=== PATIENT | female | born 1975 | race Caucasian/White ===

== ENCOUNTER → 2020-05-27 19:32 | Outpatient (CLI) | payer BC, SELFPAY | PROVIDERS: PCP Family Medicine; Visit Provider Family Medicine | DX: Z03.818 Encounter for observation for suspected exposure to other biological agents ruled out (principal) | CPT/HCPCS: U0003 ==

== ENCOUNTER → 2020-12-12 15:08 | Outpatient (CLI) | payer BC, SELFPAY ==
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
== END ==
PROVIDERS: PCP Family Medicine; Visit Provider Family Medicine
DX: M54.16 Radiculopathy, lumbar region (principal); M54.9 Dorsalgia, unspecified; M54.5 Low back pain
CPT/HCPCS: 72148; 76376

== ENCOUNTER → 2021-03-24 19:21 | Outpatient (CLI) | payer BC, SELFPAY ==
[2021-03-24 21:44] LABS: Chloride 107 mmol/L (98-107); Potassium 4.6 mmoL/L (3.5-5.1); Sodium 141 mmol/L (136-145)
[2021-03-24 21:47] LABS: Alanine Aminotransferase 20 U/L (12-78); Albumin Level 4.3 g/dl (3.5-5.0); Albumin/Globulin Ratio 1.2 (1.1-1.8); Alkaline Phosphatase 141 U/L (38-126); Anion Gap 15.6 mEq/L (5-15); Aspartate Amino Transferase 32 U/L (14-36); Bilirubin,Total 0.5 mg/dl (0.2-1.3); Blood Urea Nitrogen 14 mg/dl (7-17); Carbon Dioxide 23 mmol/L (22.0-30.0); Estimated Glomerular Filt Rate 53 ml/min (>60); GFR (African American) 65 ML/MIN (>60); Globulin 3.5 g/dL (1.3-3.2); Total Protein,Serum 7.8 g/dl (6.3-8.2)
[2021-03-24 21:48] LABS: Calcium 10.1 mg/dl (8.4-10.2); Glucose 98 mg/dl (74-100)
== END ==
PROVIDERS: Visit Provider Family Medicine
DX: Z90.5 Acquired absence of kidney (principal)
CPT/HCPCS: 80053

== ENCOUNTER 2021-04-08 19:21 | Emergency (ER) | payer BC, SELFPAY ==
[2021-04-08 19:22] VITALS: BP 159/83; PULSE 91; RESP 16; TEMP 36.3; O2SAT 97; BMI 37.5
--- NOTE | 2021-04-08 19:47 | HMH.EDGENADL ---
ED Disposition Clinical Impression: Chronic back pain Qualifiers: Back pain location: low back pain Back pain laterality: right Sciatica presence: with sciatica Sciatica laterality: sciatica of right side Qualified Code(s): M54.41 - Lumbago with sciatica, right side; G89.29 - Other chronic pain Disposition: Home, Self-Care Condition on Discharge: Good Prescriptions: Oxycodone HCl/Acetaminophen [Percocet 5/325mg tablet] 1 tab PO TID PRN #5 tab PRN Reason: Moderate Pain Transmission Status: Received by [id number] Referrals: Fran Arnett MD [Primary Care Provider] - 04/09/21 (Call for appointment) Time of Disposition: 19:51 - Critical Care Critical Care Time: No Attestation: On 04/08/21, the high probability of a clinically significant, sudden or life threatening deterioration of the following system(s) required my full and direct attention, intervention and personal management. The time I documented below is in addition to time spent performing reported procedures but includes the following listed in this critical care notation. Medical Decision Making - Medical Records Medical records reviewed: Yes: I reviewed the patient's medical records. MR Comment: Reviewed the patient's MRI study. - Ned Inquiry Pt receiving controlled substance: No Vital Signs: 04/08/21 19:22 Temperature 97.3 F L Temperature Source Oral Pulse Rate [Left] 91 H Respiratory Rate 16 Blood Pressure [Right Arm] 159/83 H Blood Pressure Mean [Right Arm] 108 02 Sat by Pulse Oximetry 97 Oxygen Delivery Method Room Air Medical Decision Narrative: 45yo F evaluated for chronic back pain. Patient no acute distress on initial evaluation. Patient states she cannot tolerate gabapentin because it makes her so dizzy she cannot work. Offered to write the patient for gabapentin 100 mg tablets and let her slowly titrate herself up and see if she tolerates it better. She declines. She states she prefer to go back to Percocet 5 mg that was being prescribed by her PCP. Patient's back pain on palpation does not correlate to her MRI findings. I agreed to write a few tablets so she can follow-up with her PCP tomorrow. General Adult HPI - General Chief complaint: PAIN Stated complaint: back pain Time Seen by Provider: 04/08/21 19:35 Mode of Arrival: Ambulatory Limitations: No Limitations Description of Symptoms (Recalled from ER Triage Doc. by RN): pt complains of a cyst on her spine causing her pain 10\10 and numbness down her right leg - History of Present Illness HPI narrative: 45yo F with ongoing back pain. Patient is undergone MRI and currently has an appointment with a surgical technology instructor at [facility] in 19 days. She was on Percocet 5 mg from her PCP and then switched to gabapentin 300 mg every 8. She states the gabapentin make her so dizzy she is not able to function. She stopped taking them. She only took 10 of them for a trial. She denies any recent injury, fall, trauma. No new symptoms, numbness, loss of bladder or bowel control. - Related Data Home Medications Medication Instructions Recorded Confirmed amlodipine 10 mg tablet 10 mg PO DAILY tab 03/11/20 03/24/21 cholecalciferol (vitamin D3) 25 1,000 unit PO DAILY cap 03/11/20 03/24/21 mcg (1,000 unit) capsule venlafaxine 150 mg ea PO 03/11/20 03/24/21 capsule,extended release 24 hr Previous Rx's Medication Instructions Recorded propranolol 80 mg capsule,24 80 mg PO DAILY #30 cap 04/16/20 hr,extended release buspirone 10 mg tablet See Rx Instructions .ROUTE 02/11/21 .COMPLEX #90 tab cyclobenzaprine 10 mg tablet See Rx Instructions .ROUTE 02/11/21 .COMPLEX #90 tab clobetasol 0.05 % topical cream 1 applic TOPICAL BID 14 Days #60 g 03/24/21 gabapentin 300 mg capsule 300 mg PO Q8H PRN #90 cap 03/24/21 oxycodone-acetaminophen 5 mg-325 1 tab PO DAILY PRN #10 tab 03/24/21 mg tablet Oxycodone HCl/Acetaminophen 1 tab PO TID PRN #5 tab
[2021-04-08 20:00] VITALS: BP 163/109; PULSE 89; RESP 20; TEMP 37; O2SAT 94
== END 2021-04-08 20:00 | disposition home or self-care (01) ==
PROVIDERS: Emergency Provider Family Medicine; PCP Family Medicine
DX: M54.41 Lumbago with sciatica, right side (principal); G89.29 Other chronic pain; I10 Essential (primary) hypertension; K21.9 Gastro-esophageal reflux disease without esophagitis
CPT/HCPCS: 99281

== ENCOUNTER 2021-05-06 22:01 | Emergency (ER) | payer BC, SELFPAY ==
[2021-05-06 22:02] VITALS: BP 124/69; PULSE 77; RESP 17; TEMP 36.4; O2SAT 99; BMI 37.5
--- NOTE | 2021-05-06 22:21 | HMH.EDBACK ---
ED Disposition Clinical Impression: Lumbar radiculopathy Disposition: Home, Self-Care Condition on Discharge: Good Instructions: DI for Back Pain With Sciatica Additional Instructions: use meds and call pcp for follow up Prescriptions: methylPREDNISolone [Medrol 4mg tab] 4 mg PO DIRECTED #21 tab Prescription Printed Referrals: Fran Arnett MD [Primary Care Provider] - - Critical Care Critical Care Time: No Attestation: On 05/06/21, the high probability of a clinically significant, sudden or life threatening deterioration of the following system(s) required my full and direct attention, intervention and personal management. The time I documented below is in addition to time spent performing reported procedures but includes the following listed in this critical care notation. Medical Decision Making - Medical Records Medical records reviewed: Yes: I reviewed the patient's medical records. - Ned Inquiry Pt receiving controlled substance: No Vital Signs: 05/06/21 22:02 Temperature 97.5 F L Temperature Source Oral Pulse Rate [Right] 77 Respiratory Rate 17 Blood Pressure [Right Arm] 124/69 Blood Pressure Mean [Right Arm] 87 Blood Pressure Source [Right Arm] Automatic Cuff 02 Sat by Pulse Oximetry 99 Oxygen Delivery Method Room Air - Lab Data Lab results reviewed: Yes: I reviewed the patient's lab results. Medical Decision Narrative: acute excerbation of lumbar radicular pain - no cauda equina sx -will give steroids and see pcp for follow up Back Pain HPI - General Chief Complaint: Back Pain/Injury Stated Complaint: cysts on spine L leg numb Time Seen by Provider: 05/06/21 22:22 Mode of Arrival: Family Vehicle Source of Information: Patient, Medical Record Limitations: No Limitations Description of Symptoms (Recalled from ER Triage Doc. by RN): Pt reports she has chronic back pain and today she developed new numbness, weakness, and pain to LLE. Pt denies any loss of bladder or bowel. She is able to void without difficulty. She denies any fever, chills, or n/v/d. Pt reports she has a cyst to my L4-5 . Pt states that she had an appt with [facility] on 04/27 but she could not find the place and I just walked around for 2 hrs before I called to reschedule and new appt is in June - History of Present Illness HPI Narrative: pt with known lumbar radicular pain with onset of new lt lower ext parasthesia - today w/o fever/rash/trauma/ no cauda equina sx- MD Complaint: back pain Onset (ago): day(s) Duration: constant Similar Symptoms Previously: No Location: lumbar spine Severity: moderate Quality: sharp Radiation: left leg Relieving factors: none Associated symptoms: denies other symptoms Pertinent Issues R/T Back Pain: Other (known back issues ) - Related Data Home Medications Medication Instructions Recorded Confirmed amlodipine 10 mg tablet 10 mg PO DAILY tab 03/11/20 03/24/21 cholecalciferol (vitamin D3) 25 1,000 unit PO DAILY cap 03/11/20 03/24/21 mcg (1,000 unit) capsule venlafaxine 150 mg ea PO 03/11/20 03/24/21 capsule,extended release 24 hr Previous Rx's Medication Instructions Recorded propranolol 80 mg capsule,24 80 mg PO DAILY #30 cap 04/16/20 hr,extended release buspirone 10 mg tablet See Rx Instructions .ROUTE 02/11/21 .COMPLEX #90 tab cyclobenzaprine 10 mg tablet See Rx Instructions .ROUTE 02/11/21 .COMPLEX #90 tab clobetasol 0.05 % topical cream 1 applic TOPICAL BID 14 Days #60 g 03/24/21 gabapentin 300 mg capsule 300 mg PO Q8H PRN #90 cap 03/24/21 oxycodone-acetaminophen 5 mg-325 1 tab PO DAILY PRN #10 tab 03/24/21 mg tablet Oxycodone HCl/Acetaminophen 1 tab PO TID PRN #5 tab 04/08/21 [Percocet 5/325mg tablet] methylPREDNISolone [Medrol 4mg 4 mg PO DIRECTED #21 tab 05/06/21 tab] Allergies Allergy/AdvReac Type Severity Reaction Status Date / Time ibuprofen Allergy Mild Verified 03/24/21 16:18 lorazepam [Fro
[2021-05-06 22:46] VITALS: BP 124/69; PULSE 83; RESP 22; TEMP 36.7; O2SAT 99
== END 2021-05-06 22:50 | disposition home or self-care (01) ==
PROVIDERS: Emergency Provider Emergency Medicine; PCP Family Medicine
DX: M51.36 Other intervertebral disc degeneration, lumbar region (principal); K21.9 Gastro-esophageal reflux disease without esophagitis; I10 Essential (primary) hypertension; F17.210 Nicotine dependence, cigarettes, uncomplicated
CPT/HCPCS: 96374; 99281

== ENCOUNTER → 2021-06-10 15:59 | Outpatient (CLI) | payer BC, SELFPAY ==
--- NOTE | 2021-06-10 16:00 | MR_ITS ---
PROCEDURE INFORMATION: Exam: MR Lumbar Spine Without Contrast Exam date and time: 06/10/2021 4:00 PM Age: 45 years old Clinical indication: Patient HX: Low back pain, RT leg pain and numbness, cyst. ; Additional info: 2.6cm sacral cyst with worsening symptoms TECHNIQUE: Imaging protocol: Multiplanar magnetic resonance images of the lumbar spine without intravenous contrast. COMPARISON: MR LUMBAR SPINE WO CON 12/12/2020 3:26 PM FINDINGS: Vertebrae: There is no acute fracture or listhesis. Normal vertebral body alignment and heights are preserved. Spinal cord: Normal signal. No cord compression. There is a stable right-sided perineural cyst at the S2 level measuring up to 2.5 x 1.2 cm, unchanged. L1-L2: No significant disc disease. No significant spinal canal stenosis. No neural foraminal stenosis. L2-L3: There is shallow disc bulging. There is mild facet hypertrophy. There is mild left neural foraminal narrowing. L3-L4: There is shallow disc bulging. There is mild facet hypertrophy. There is mild bilateral neural foraminal narrowing. L4-L5: There is shallow disc bulging. There is mild facet and ligamentous hypertrophy. There is mild canal stenosis. There is mild bilateral neural foraminal narrowing. L5-S1: There is shallow disc bulging. There is mild facet hypertrophy. The spinal canal and neural foramina are patent. Soft tissues: Unremarkable. IMPRESSION: 1. Stable right sacral perineural cyst. 2. Mild degenerative disc disease and spondylosis.
== END ==
PROVIDERS: PCP Family Medicine; Visit Provider Family Medicine
DX: M71.38 Other bursal cyst, other site (principal)
CPT/HCPCS: 72148; 76376

== ENCOUNTER → 2021-07-13 18:58 | Outpatient (CLI) | payer BC, SELFPAY | PROVIDERS: Visit Provider Nurse Practitioner Family | DX: Z20.822 Contact with and (suspected) exposure to COVID-19 (principal) | CPT/HCPCS: C9803; U0003; U0005 ==

== ENCOUNTER 2021-10-27 07:32 | Emergency (ER) | payer SELFPAY ==
[2021-10-27 07:33] VITALS: BP 196/86; PULSE 88; RESP 18; TEMP 36.6; O2SAT 97; BMI 40.7
[2021-10-27 07:44] VITALS: BP 196/86; PULSE 90; O2SAT 98
[2021-10-27 08:22] VITALS: BP 175/85; PULSE 85; RESP 18; O2SAT 98
--- NOTE | 2021-10-27 08:28 | HMH.EDGENADL ---
ED Disposition Clinical Impression: Toothache, Dental caries Disposition: Home, Self-Care Condition on Discharge: Good Instructions: DI for Dental Pain, DI for Tooth Decay Additional Instructions: Penicillin as prescribed. [place] as needed. If you need additional pain medication you must obtain this from your primary care provider or a dentist. Additional instructions for DENTAL PROBLEMS: See a dentist as soon as possible for further evaluation. Return immediately if you have an uncontrollable fever greater than 102 degrees, difficulty breathing or shortness of breath, persistent vomiting, or inability to swallow. Additional instructions for CONTROLLED SUBSTANCES: You have been prescribed a medication that is a controlled substance. Controlled substances include pain medications known as opiates and sedative nerve medications known as benzodiazepines. Tramadol, fioricet, and gabapentin are also controlled substances. Some common opiates include: Codeine (such as Tylenol #3) Hydrocodone (Vicodin, Lortab, Lorcet, [place]) Oxycodone (Percocet, Percodan, Oxycodone, Oxy IR) Some common benzodiazepines include: Diazepam (Valium) Lorazepam (Ativan) Alprazolam (Xanax) Clonazepam (Klonopin) Oxazepam (Serax) All of these controlled substances are highly addictive and frequently abused. Misuse can and frequently does lead to addiction as well as overdose and . Medication should be stored in a locked cabinet or other secure storage unit. Do not store the medication in a motor vehicle. Short term supplies, 3 days or less, are prescribed because of the highly addictive nature of the medication. Any of the controlled substance medication NOT taken should be disposed of properly and NOT SAVED. The recommended method of disposing of unused medications is: Place the medicines in a sealable plastic bag. If the medicine is a solid, crush it or add water to dissolve it. Add something undesirable (cat litter, coffee grounds, etc.) Dispose of sealed bag in household trash Do not flush or pour unused medicines down a sink or drain. Controlled substances should not be shared, given away or sold. Because of the addictive nature and frequent abuse, these medications are sometimes stolen. These medications should be kept in a safe place where they cannot be stolen. Do not keep them in your car or purse. Lost or stolen prescriptions for controlled substances WILL NOT BE REFILLED in this emergency department, regardless of whether a police report was filed. Prescriptions: Hydrocod/Acet 5/325 mg [[place] 5/325mg tablet] 1 tab PO Q6HP PRN #6 tab PRN Reason: Pain Transmission Status: Sent to [facility] Penicillin V Potassium 500 mg PO QID #40 tab Transmission Status: Pending to [facility] Referrals: Fran Arnett MD [Primary Care Provider] - - Critical Care Critical Care Time: No Attestation: On 10/27/21, the high probability of a clinically significant, sudden or life threatening deterioration of the following system(s) required my full and direct attention, intervention and personal management. The time I documented below is in addition to time spent performing reported procedures but includes the following listed in this critical care notation. Medical Decision Making - Ned Inquiry Pt receiving controlled substance: Yes Ned was queried for this patient: Yes Risks and benefits of using a controlled substance: were discussed with pt by me Vital Signs: 10/27/21 07:33 10/27/21 07:44 10/27/21 08:22 Temperature 97.9 F Temperature Source Oral Pulse Rate 90 85 Pulse Rate [Left Radial] 88 Respiratory Rate 18 18 Blood Pressure 196/86 H 175/85 H Blood Pressure [Right Arm] 196/86 H Blood Pressure Mean 122 115 Blood Pressure Mean [Right Arm] 122 Blood Pressure Source [Right Arm] Automatic Cuff Blood Pressure Position [Right Arm] Sitting 02 Sat by Pulse Oximetry 97 98 9
--- NOTE | 2021-10-27 08:31 | PC.NURSE ---
SRAVANTHI SMITH at
[2021-10-27 09:07] VITALS: BP 175/85; PULSE 85; RESP 18; TEMP 36.6; O2SAT 98
== END 2021-10-27 09:08 | disposition home or self-care (01) ==
PROVIDERS: Emergency Provider Emergency Medicine; PCP Family Medicine
DX: K02.9 Dental caries, unspecified; K21.9 Gastro-esophageal reflux disease without esophagitis; I10 Essential (primary) hypertension; Z85.9 Personal history of malignant neoplasm, unspecified; Z72.0 Tobacco use; E66.9 Obesity, unspecified; Z68.41 Body mass index [BMI] 40.0-44.9, adult; Z88.8 Allergy status to other drugs, medicaments and biological substances
CPT/HCPCS: 99213; G0463

== ENCOUNTER 2024-03-08 12:43 | Outpatient (CLI) | payer BC, SELFPAY ==
--- NOTE | 2024-03-08 12:44 | MR_ITS ---
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 Alignment is normal. Marrow signal pattern is unremarkable. Again seen is a perineural cyst within the sacral spinal canal seen only on sagittal imaging at the S2 level. This measures 25 x 12 mm and is unchanged from prior exam. L1-2: Unremarkable. L2-3: Unremarkable. L3-4: Unremarkable. L4-5: Mild annular disc bulge. L5-S1: Unremarkable. IMPRESSION: Minimal degenerative changes without canal stenosis or nerve root compression. Stable perineural cyst. Reviewed, Interpreted and Dictated by Eduardo Short MD Transcribed by Hanna Schultz Authenticated and [facility]
== END 2024-03-08 23:59 | disposition home or self-care (01) ==
LOC: RAD 12:44
PROVIDERS: PCP Family Medicine; Visit Provider Family Medicine
DX: G96.191 Perineural cyst (principal)
CPT/HCPCS: 72148